=== PATIENT | female | born 1995 | race Two or more races ===

== ENCOUNTER 2016-12-20 17:10 | Emergency (ER) | payer MEDICAID ==
--- NOTE | ~2016-12-20 | ER ---
PATIENT'S NAME: JENISE LOMELI [facility] AGE: 21 Y [address] ROOM: [place] [id number] LOCATION: ED ADMIT DATE: 12/20/2016 ER/Outpatient Report DISCHARGE DATE: 12/20/2016 FAMILY PHYSICIAN: Marin Almaraz MD ATTENDING PHYSICIAN: Moshe Stacy Time of Arrival: 1710 hours. Time of Evaluation: 1720 hours. CHIEF COMPLAINT: Rash. HISTORY OF PRESENT ILLNESS: This is a 21-year-old female who presents to the ER, who states that she noticed a rash to her face yesterday. She states she has been soiled a lot lately the past few days. She states that she now has noticed a rash on her arms. She states that it feels a little bit itchy. She states that she puts some lotion on it and then she had a burning sensation to it. She denies any shortness of breath. No cough. She has not taken anything [id number] for this. Denies any new changes in soaps or lotions. She states that she just took a home test as well and is positive for . She states her last menstrual period was November 15, 2016. SOCIAL HISTORY: Denies smoking, drug, or alcohol use. MEDICATIONS: Please see medication list in nurse's notes. PAST MEDICAL HISTORY: Negative. PAST SURGICAL HISTORY: None. REVIEW OF SYSTEMS: A 10-point review of system was completed and was negative with the exception of those discussed in the HPI. PHYSICAL EXAMINATION: VITAL SIGNS: Weight 53.6 kg taken, blood pressure is 117/59, pulse 97, respirations 20, temperature 98.6 degrees tympanically, and saturations 98% on room air. Anahy Coma Score is 15. GENERAL: Alert, calm, well-developed 21-year-old, in no acute distress. HEENT. Head: Normocephalic. Eyes: Pupils are equal and reactive to light. PATIENT'S NAME: JENISE LOMELI [facility] AGE: 21 Y [address] ROOM: [place] [address] LOCATION: ED ADMIT DATE: 12/20/2016 ER/Outpatient Report DISCHARGE DATE: 12/20/2016 FAMILY PHYSICIAN: Marin Almaraz MD ATTENDING PHYSICIAN: Moshe Stacy She does display moist mucous membranes. I do not appreciate any angioedema. LUNGS: Clear to auscultation bilaterally. No wheezes or crackles. Normal respiratory effort. HEART: Regular rate and rhythm. SKIN: She has fine slightly raised reddened rash noted to her face and arms. There is no drainage, papules noted. LABORATORY DATA AND X-RAYS: None were done. IMPRESSION: Rash, NOS. ASSESSMENT AND PLAN: Did give the patient reassurance. I advised her to do cool compresses to the skin. She may be take Benadryl every 6 hours as needed, and I would like her to follow up with her primary care physician if she is not improved. The patient understands and agrees with care. JOYCE CAMP PA-C FOR MD THOM NESBITT/modl /[id number] d: 12/21/16 0059 t: 01/02/17 1731, OUTPATIENT REPORT
== END 2016-12-20 17:55 | disposition disaster alternative care site (69) ==
LOC: GMED 17:10
DX: R21 Rash and other nonspecific skin eruption (principal); Z88.1 Allergy status to other antibiotic agents